=== PATIENT | male | born 1995 | race Caucasian/White ===

== ENCOUNTER 2022-08-25 16:17 | Emergency (ER) | payer OTHER ==
[2022-08-25 17:07] VITALS: BP 146/83
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
[2022-08-25] MEDS ORDERED: KETOROLAC 60 MG/2 ML VIAL IM STA (21:09)
== END 2022-08-25 21:28 | disposition home or self-care (01) ==
LOC: ED 16:17
DX: S16.1XXA Strain of muscle, fascia and tendon at neck level, initial encounter (principal); S05.12XA Contusion of eyeball and orbital tissues, left eye, initial encounter; V49.88XA Car occupant (driver) (passenger) injured in other specified transport accidents, initial encounter
CPT/HCPCS: 96372; 99282; 99284